=== PATIENT | female | born 1990 | race Caucasian/White ===

== ENCOUNTER → 2016-07-15 | Outpatient (CLI) | payer BC, OTHER ==
[~2016-07-15] MED LIST: BCPILLS PO
--- NOTE | 2016-07-15 15:47 | DIAGNOSTIC IMAGING REPORT ---
LEFT FOOT MIN 3 VIEWS CLINICAL HISTORY: LEFT FOOT PAIN COMPARISON: None. DISCUSSION: No fractures or dislocations are visualized. There are no erosive or destructive changes. There is a tiny Achilles insertional and tiny plantar calcaneal spur. There is borderline dorsal soft tissue swelling. IMPRESSION: Probable mild soft tissue swelling. No significant bony abnormalities identified. Electronically signed by: Joe Canchola M.D. 07/15/2016 3:45 PM Dictated Date/Time: 07/15/2016 3:44 PM
== END | disposition home or self-care (01) ==
LOC: C.RDSM 14:36
PROVIDERS: ATTEND Physician Assistant
DX: M79.672 Pain in left foot (principal)